=== PATIENT | male | born 1955 | race Caucasian/White ===

== ENCOUNTER 2016-12-11 20:41 | Emergency (ER) ==
[2016-12-11 20:49] LABS: ABG BASE EXCESS 0 (-2.0-2.0); ABG HCO3 24.9 (22.0-26.0); ABG PCO2 38.4 mmHg (35-45); ABG TCO2 26 (22.0-28.0)
[2016-12-11 20:50] VITALS: BP 133/88; TEMP 98.2; BMI 24.4
--- NOTE | 2016-12-11 20:50 | ED.PDOC ---
General ED Provider: Dr. KEVIN FUENTES Chief Complaint: Syncope Stated Complaint: Patient was having high Blood sugars 376, while he was coming to ER with family he passed out in the car, nurses have to bring him inside,. was awake and alert once he was inside the ER. Time Seen by Physician: 20:05 Primary Care Provider: MI LORENZO Nursing and Triage Documentation Reviewed and Agree: Yes Neurological Complaint Exam - Syncope/Near Syncope Complaint/Exam Symptoms Are: Still present Episodes Lasting: Minutes Number of Episodes: 1 Episodes Witnessed: Yes Loss of Consciousness: Yes Associated Head Trauma: No Activity at Onset: At rest Aggravating: None Alleviating: Reports: Spontaneous resolution Associated Signs and Symptoms: Reports: Weakness. Denies: Pain, Decreased oral intake, Vomiting, Diarrhea, GI blood loss, Short of air, Chest pain, Palpitations, Diaphoresis, Lightheadedness, Dizziness, AMS, Numbness, Headache, Seizure, Remote head trauma, Recent head trauma Cardiac Risk Factors: Reports: Hypertension, Diabetes GI Bleed Risk Factors: Reports: None Dysrhythmia Risk Factors: Reports: >45 years old JVD Present: No Carotid Bruit Present: No Rectal Heme Positive: No Nystagmus Present: No Gag Reflex Present: Yes Meningeal Signs Positive: No Focal Weakness: Present: None Focal Sensory Loss: Present: None Gait: Unable [id number]: Normal Findings Romberg Test Positive: No Babinski Sign: Negative Right, Negative Left Differential Diagnoses: Metabolic Reaction Quality Indicators for Cardiac Chest Pain: EKG in 10min. Review of Systems - Review Of Systems Constitutional: Reports: Weakness Eyes: Reports: No symptoms Ears, Nose, Mouth, Throat: Reports: No symptoms Respiratory: Reports: No symptoms Cardiac: Reports: No symptoms GI: Reports: No symptoms : Reports: No symptoms Musculoskeletal: Reports: No symptoms Skin: Reports: No symptoms Neurological: Reports: Headache, Weakness Endocrine: Reports: No symptoms Hematologic/Lymphatic: Reports: No symptoms All Other Systems: Reviewed and Negative Past Medical History - Past Medical History Previously Healthy: Yes Endocrine: Reports: DM 2 Cardiovascular: Reports: None Respiratory: Reports: None Hematological: Reports: None Gastrointestinal: Reports: None Genitourinary: Reports: Other (Has only one kidney ) Neuro/Psych: Reports: None Musculoskeletal: Reports: None Cancer: Reports: None Other Pertinent Past Medical History: Elbow injury, 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 - Surgical History General Surgical History: Reports: None - Family History Family History: Reports: None - Social History Smoking Status: Current every day smoker, Heavy tobacco smoker Smoking Cessation Counseling Time: > 10 min Hx Substance Use: No Alcohol Screening: None Physical Exam - Physical Exam Appearance: Ill-appearing Eyes: EOMI ENT: Ears normal, Nose normal, Oropharynx normal Respiratory: Airway patent, Breath sounds clear, Breath sounds equal, Respirations nonlabored Cardiovascular: RRR, Pulses normal, No rub, No murmur GI/: Soft, Nontender, No masses, Bowel sounds normal, No Organomegaly Musculoskeletal: Normal strength, ROM intact, No edema, No calf tenderness Skin: Warm, Dry, Normal color Neurological: Sensation intact, Motor intact, Reflexes intact, Cranial nerves intact, Alert, Oriented Psychiatric: Affect appropriate, Mood appropriate Interpretation - Radiology Interpretation Radiology Interpretation By: Radiologist Radiology Results: Negative Exam Interpreted: CT Scan Re-Evaluation - Re-Evaluation Time of Re-Evaluation: 22:00 Status: Improved Critical Care Note - Critical Care Note Total Time (mins): 30 Course - Course Hematology/Chemistry: 12/11/16 20:30 12/11/16 20:30 Orders, Labs, Meds: Lab Review 12/11/16 12/11/16 12/11/16 20:30 20:30 20:30 WBC 7.89 RBC 4.85 Hgb 14.2 Hct 41.4 L MCV 85.4 MCH 29.3 MCHC 34.3 RDW Coeff of Tor 12.4 Plt Count 191 Immature Gran % (Auto) 0.4 Neut % (Auto) 68.9 Lymph % (Auto) 21.3 [place] % (Auto) 7.4 Eos % (Auto) 1.4 Baso % (Auto) 0.6 Immature Gran # (Auto) 0.0 Neut # 5.4 Lymph # 1.7 [place] # 0.6 Eos # 0.1 Baso # 0.1 D-Dimer (Manual) Puncture Site O2 Saturation ABG pH ABG pCO2 ABG pO2 ABG HCO3 ABG Total CO2 ABG Base Excess [place] Test FiO2 % Sodium 135 L Potassium 4.2 Chloride 98 Carbon Dioxide 25 Anion Gap 16.2 BUN 22 H Creatinine 1.95 H Estimated GFR (MDRD) 35.00 BUN/Creatinine Ratio 11.28 Glucose 290 H Calcium 10.0 Total Bilirubin 0.25 AST 14 L ALT 10 L Alkaline Phosphatase 97 Total Creatine Kinase 49 Troponin I 0.0130 B-Natriuretic Peptide 23 Total Protein 7.1 Albumin 3.2 L Globulin 3.9 Albumin/Globulin Ratio 0.82 12/11/16 12/11/16 20:30 20:47 WBC RBC Hgb Hct MCV MCH MCHC RDW Coeff of Tor Plt Count Immature Gran % (Auto) Neut % (Auto) Lymph % (Auto) [place] % (Auto) Eos % (Auto) Baso % (Auto) Immature Gran # (Auto) Neut # Lymph # [place] # Eos # Baso # D-Dimer (Manual) 480.49 Puncture Site Lb O2 Saturation 95.0 ABG pH 7.420 ABG pCO2 38.4 ABG pO2 77.0 L ABG HCO3 24.9 ABG Total CO2 26 ABG Base Excess 0 [place]ane Test + FiO2 % 21.0 Sodium Potassium Chloride Carbon Dioxide Anion Gap BUN Creatinine Estimated GFR (MDRD) BUN/Creatinine Ratio Glucose Calcium Total Bilirubin AST ALT Alkaline Phosphatase Total Creatine Kinase Troponin I B-Natriuretic Peptide Total Protein Albumin Globulin Albumin/Globulin Ratio Orders Category Date Time Status ABG DRAW REQUEST Stat CARDIO 12/11/16 20:47 Completed EKG-(ED ONLY) Stat CARDIO 12/11/16 20:53 Completed ABG Stat LAB 12/11/16 20:47 Completed B-TYPE NATRIURETIC PEPTIDE Stat LAB 12/11/16 20:30 Completed CBC W/ AUTO DIFF Stat LAB 12/11/16 20:30 Completed COMPREHENSIVE METABOLIC PANEL Stat LAB 12/11/16 20:30 Completed CREATINE KINASE Stat LAB 12/11/16 20:30 Completed D-DIMER Stat LAB 12/11/16 20:30 Completed TROPONIN I Stat LAB 12/11/16 20:30 Completed URINALYSIS C & S IF INDICATED Stat LAB 12/11/16 20:45 Uncollected Clonidine HCl [Catapres] MEDS 12/11/16 21:17 Discontinued 0.1 mg PO ONCE STA CT HEAD W/O CONTRAST Stat RADS 12/11/16 20:45 Completed CXR [CHEST, 1V AP ONLY] Stat RADS 12/11/16 20:45 Taken Medications Discontinued Medications Generic Name Dose Route Start Last Admin Trade Name Freq PRN Reason Stop Dose Admin Clonidine 0.1 mg 12/11/16 21:17 12/11/16 21:29 Catapres PO 12/11/16 21:18 0.1 mg ONCE STA Administration Vital Signs: Temp Pulse Resp BP Pulse Ox 12/11/16 20:42 98.2 F 77 16 133/88 98 Departure - Departure Time of Disposition: 22:01 Disposition: AMA Discharge Problem: Syncope Instructions: Syncope (ED) Condition: Good Pt referred to PMD for follow-up: Yes Additional Instructions: advised admission in view of DM, HTN AND SYNCOPE, PATIENT REFUSED, A Allergies/Adverse Reactions: Allergies No Known Allergies Allergy (Verified 12/09/15 00:57) Home Medications: Ambulatory Orders Glipizide [Glucotrol] 5 mg PO BID 07/26/15 Linagliptin [Tradjenta] 5 mg PO BEDTIME 07/26/15 Disposition Discussed With: Patient, Family
[2016-12-11 20:53] LABS: BASOPHILS # (AUTO) 0.1 K/uL (0-0.2); BASOPHILS % (AUTO) 0.6 % (0.0-3.0); EOSINOPHILS # (AUTO) 0.1 K/ul (0.0-0.7); EOSINOPHILS % (AUTO) 1.4 % (0.0-7.0); HEMATOCRIT 41.4 % (42.0-52.0); HEMOGLOBIN 14.2 g/dl (14.0-18.0); IMMATURE GRANULOCYTE % (AUTO) 0.4 % (0.0-5.0); LYMPHOCYTES # (AUTO) 1.7 K/uL (0.60-3.4); LYMPHOCYTES % (AUTO) 21.3 (10.0-50.0); MEAN CORPUSCULAR HEMOGLOBIN 29.3 pg (27.0-31.0); MEAN CORPUSCULAR HGB CONC 34.3 (31.8-35.4); MEAN CORPUSCULAR VOLUME 85.4 fl (80.0-94.0); MONOCYTES # (AUTO) 0.6 K/uL (0.4-2.0); MONOCYTES % (AUTO) 7.4 (0-10); NEUTROPHILS # (AUTO) 5.4 K/ul (2.0-6.9); NEUTROPHILS % (AUTO) 68.9; PLATELET COUNT 191 10^3/uL (140-440); RED BLOOD COUNT 4.85 10^6/ul (4.70-6.10); WHITE BLOOD COUNT 7.89 K/ul (4.2-10.2)
[2016-12-11 21:20] LABS: ALBUMIN 3.2 g/dL (3.4-5.0); ALBUMIN/GLOBULIN RATIO 0.82; ANION GAP 16.2; BILIRUBIN,TOTAL 0.25 mg/dL (0.00-1.20); BUN/CREATININE RATIO 11.28; CREATININE 1.95 mg/dL (0.60-1.10); POTASSIUM 4.2 mmol/L (3.5-5.1); TOTAL PROTEIN 7.1 g/dL (5.8-8.1); TROPONIN I 0.013 ng/ml (0.0000-0.4000)
[2016-12-11] MEDS: CATAPRES PO STA (21:29)
--- NOTE | 2016-12-11 21:29 | CT ---
Examination: CT head without contrast 12/11/2016 Clinical information: Syncope. Comparison: None TECHNIQUE: Noncontrast helical imaging from the foramen magnum to the vertex. 5 mm axial, 3 mm sagi ttal and 3 mm coronal images are submitted for review. FINDINGS: There is no evidence of acute intracranial hemorrhage. The ventricles are normal in size and configuration. There is no mass effect, midline shift or extra-axial abnormality. There is norm al brown-white matter differentiation. Small chronic inferior right cerebellar infarct. The calvarium is intact. There is a metallic foreign body within the anterior left periorbital soft tissues. This has been present previously and noted on prior orbital film report 01/26/2008. Impression: 1. No CT evidence of acute intracranial abnormality. 2. Small chronic inferior right cerebellar infarct. 3. Left periorbital metallic foreign body.
--- NOTE | 2016-12-12 06:54 | DI ---
EXAM: Single view chest. HISTORY: Cough. COMPARISON: None. FINDINGS: A portable AP view of the chest on two images. The lung volumes are normal. There is no lobar consolidation or effusion. The heart size and pulmonary vasculature are within normal limit s. There are no suspicious pulmonary nodules. The pulmonary interstitium is normal. The aorta is tortuous and calcified. There is elevation of the distal left clavicle which has appearance of sliver lapper sameer acromioclavicular separation. A similar appearance was seen on the shoulder series dated 013. IMPRESSION: No acute pulmonary disease.
== END 2016-12-11 22:15 | disposition left against medical advice (07) ==
LOC: ED 20:41
DX: R55 Syncope and collapse (principal); R53.1 Weakness; I10 Essential (primary) hypertension; E11.9 Type 2 diabetes mellitus without complications; R51 Headache; F17.210 Nicotine dependence, cigarettes, uncomplicated
CPT/HCPCS: 36415; 80053; 82550; 82803; 83880; 84484; 85025; 85379; 93005; 93010; 99283

== ENCOUNTER 2017-07-13 03:09 | Emergency (ER) ==
[2017-07-13 03:16] VITALS: BP 170/94; TEMP 96.8; BMI 27.6
[2017-07-13] MEDS ORDERED: AUGMENTIN 500-125 MG TAB PO STA (03:23)
[2017-07-13] MEDS ORDERED: DECADRON 4 MG/ML SDV IM STA (03:23)
--- NOTE | 2017-07-13 03:28 | ED.PDOC ---
General ED Provider: Dr. KEVIN FUENTES Chief Complaint: Earache Stated Complaint: Patient had bleech fall in the right ear 2 days, its is swollen and hurting now Time Seen by Physician: 03:26 Mode of Arrival: Walk-In Information Source: Patient Primary Care Provider: MI LORENZO Nursing and Triage Documentation Reviewed and Agree: Yes Reviewed sepsis parameters & appropriate labs ordered?: No System Inflammatory Response Syndrome: Not Applicable Sepsis Protocol: For patient's 13 years and over: Temp is 96.8 and below OR 101 and greater Pulse >90 BPM Resp >20/minute Acutely Altered Mental Status Are patient's symptoms suggestive of a new infection, such as: -Pneumonia -Skin, Soft Tissue -Endocarditis -UTI -Bone, Joint Infection -Implantable Device -Acute Abdominal Infection -Wound Infection -Meningitis -Blood Stream Catheter Infection -Unknown EENT Complaint Exam - Ear Complaint/Exam Symptoms Are: Still present Timing: Constant Initial Severity: Mild Current Severity: Moderate Character: Reports: Sharp pain Aggravating: Reports: None Alleviating: Reports: None Associated Signs and Symptoms: Reports: Ear swelling. Denies: Ear trauma, Discharge, Fever, Hearing loss, Bleeding, Sore throat, Headache, URI symptoms, Foreign body sensation, Rash, Pain to external ear, Pain to external face Ear Surgical History: None Vesicles to External Pinna: No Vesicles to Tragus: No TMJ Tenderness: None Mastoid Tenderness: None Tragal Tenderness: Right External Canal: Edema, Erythema, Tenderness Differential Diagnoses: Otitis Externa Review of Systems - Review Of Systems Constitutional: Reports: No symptoms Eyes: Reports: No symptoms Ears, Nose, Mouth, Throat: Reports: Ear pain Respiratory: Reports: No symptoms Cardiac: Reports: No symptoms GI: Reports: No symptoms : Reports: No symptoms Musculoskeletal: Reports: No symptoms Skin: Reports: No symptoms Neurological: Reports: No symptoms Endocrine: Reports: No symptoms Hematologic/Lymphatic: Reports: No symptoms All Other Systems: Reviewed and Negative Past Medical History - Past Medical History Previously Healthy: Yes Endocrine: Reports: DM 2 Cardiovascular: Reports: None Respiratory: Reports: None Hematological: Reports: None Gastrointestinal: Reports: None Genitourinary: Reports: Other (Has only one kidney ) Neuro/Psych: Reports: None Musculoskeletal: Reports: None Cancer: Reports: None Other Pertinent Past Medical History: Elbow injury, 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 - Surgical History General Surgical History: Reports: None - Family History Family History: Reports: None - Social History Smoking Status: Current every day smoker, Heavy tobacco smoker Smoking Cessation Counseling Time: > 10 min Hx Substance Use: No Alcohol Screening: None - Immunizations Tetanus Shot up to Date: Yes Physical Exam - Physical Exam Appearance: Well-appearing, No pain distress, Well-nourished Eyes: HE, EOMI, Conjunctiva clear ENT: Ears normal (tragus red, swollen tender, canal swollen.), Nose normal, Oropharynx normal Respiratory: Airway patent, Breath sounds clear, Breath sounds equal, Respirations nonlabored Cardiovascular: RRR, Pulses normal, No rub, No murmur GI/: Soft, Nontender, No masses, Bowel sounds normal, No Organomegaly Musculoskeletal: Normal strength, ROM intact, No edema, No calf tenderness Skin: Warm, Dry, Normal color Neurological: Sensation intact, Motor intact, Reflexes intact, Cranial nerves intact, Alert, Oriented Psychiatric: Affect appropriate, Mood appropriate Critical Care Note - Critical Care Note Total Time (mins): 20 Course - Course Orders, Labs, Meds: Orders Category Date Time Status Amoxicillin/Potassium Clav [Augmentin 500-125 mg Tab] MEDS 07/13/17 03:23 Discontinued 1 tab PO ONCE STA Dexamethasone 4 mg/ml Inj [Decadron 4 mg/ml Sdv] MEDS 07/13/17 03:23 Discontinued 4 mg IM ONCE STA Medications Discontinued Medications Generic Name Dose Route Start Last Admin Trade Name Freq PRN Reason Stop Dose Admin Amoxicillin/Clavulanate Potassium 1 tab 07/13/17 03:23 Augmentin 500-125 Mg Tab PO 07/13/17 03:24 ONCE STA Dexamethasone Sodium Phosphate 4 mg 07/13/17 03:23 Decadron 4 Mg/Ml Sdv IM 07/13/17 03:24 ONCE STA Vital Signs: Temp Pulse Resp BP Pulse Ox 07/13/17 03:10 96.8 F L 80 24 170/94 H 98 Departure - Departure Time of Disposition: 03:30 Disposition: HOME SELF-CARE Discharge Problem: Otitis externa Qualifiers: Otitis externa type: other infective Chronicity: acute Laterality: right Qualified Code(s): H60.391 - Other infective otitis externa, right ear Instructions: Otitis Externa (ED) Condition: Stable Pt referred to PMD for follow-up: Yes IPMP verified?: No Additional Instructions: keep checking Blood sugars if more than 250 call MD office Increase hydration Take medication with food f/u with PMD Prescriptions: Ciprofloxacin HCl [Cipro] 250 mg PO Q12HR #14 tablet Ciprofloxacin/Dexamethasone [Ciprodex Otic Suspension] 2 drop OT TID #1 btl Prednisone 10 mg PO BIDWM #14 tablet Allergies/Adverse Reactions: Allergies No Known Allergies Allergy (Verified 07/13/17 03:14) Home Medications: Ambulatory Orders Glipizide [Glucotrol] 5 mg PO BID 07/26/15 Linagliptin [Tradjenta] 5 mg PO BEDTIME 07/26/15 Ciprofloxacin HCl [Cipro] 250 mg PO Q12HR #14 tablet 07/13/17 Ciprofloxacin/Dexamethasone [Ciprodex Otic Suspension] 2 drop OT TID #1 btl Prednisone 10 mg PO BIDWM #14 tablet 07/13/17
== END 2017-07-13 03:54 | disposition home or self-care (01) ==
LOC: ED 03:09
DX: H60.391 Other infective otitis externa, right ear (principal); F17.210 Nicotine dependence, cigarettes, uncomplicated; E11.9 Type 2 diabetes mellitus without complications
CPT/HCPCS: 96372; 99282

== ENCOUNTER 2018-05-12 02:04 | Emergency (ER) ==
[2018-05-12 02:06] VITALS: BP 144/77; TEMP 97.6
[2018-05-12] MEDS: TORADOL IM STA ×2 (02:27→02:28)
--- NOTE | 2018-05-12 02:32 | ED.PDOC ---
General ED Provider: Dr. RUPAL VAUGHN Chief Complaint: Extremity Pain/Injury Stated Complaint: Patient presents to the ER with Right knee pain that started suddely prior to arrival. Denies any trauma. He is diabetic and takes his medications as prescribed. 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 Time Seen by Physician: 02:20 Mode of Arrival: Walk-In Information Source: Patient Exam Limitations: No limitations Primary Care Provider: MI LORENZO Nursing and Triage Documentation Reviewed and Agree: Yes Does patient meet sepsis criteria?: No If yes, has appropriate treatment been initiated?: No System Inflammatory Response Syndrome: Not Applicable Sepsis Protocol: For patient's 13 years and over: Temp is 96.8 and below OR 101 and greater Pulse >90 BPM Resp >20/minute Acutely Altered Mental Status Are patient's symptoms suggestive of a new infection, such as: -Pneumonia -Skin, Soft Tissue -Endocarditis -UTI -Bone, Joint Infection -Implantable Device -Acute Abdominal Infection -Wound Infection -Meningitis -Blood Stream Catheter Infection -Unknown Review of Systems - Review Of Systems Constitutional: Reports: No symptoms Eyes: Reports: No symptoms Ears, Nose, Mouth, Throat: Reports: No symptoms Respiratory: Reports: No symptoms Cardiac: Reports: No symptoms GI: Reports: No symptoms : Reports: No symptoms Musculoskeletal: Reports: Joint pain Skin: Reports: No symptoms Neurological: Reports: Anxiety Endocrine: Reports: No symptoms Hematologic/Lymphatic: Reports: No symptoms All Other Systems: Reviewed and Negative Past Medical History - Past Medical History Previously Healthy: Yes Endocrine: Reports: DM 2 Cardiovascular: Reports: None Respiratory: Reports: None Hematological: Reports: None Gastrointestinal: Reports: None Genitourinary: Reports: Other (Has only one kidney ) Neuro/Psych: Reports: None Musculoskeletal: Reports: None Cancer: Reports: None Other Pertinent Past Medical History: Elbow injury, 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 - Surgical History General Surgical History: Reports: None - Family History Family History: Reports: None - Social History Smoking Status: Current every day smoker, Heavy tobacco smoker Hx Substance Use: No Alcohol Screening: Occasionally - Immunizations Tetanus Shot up to Date: Yes Physical Exam - Physical Exam Appearance: Well-nourished Pain Distress: Severe Neck: Supple Respiratory: Airway patent, Breath sounds clear, Breath sounds equal, Respirations nonlabored Cardiovascular: RRR, Pulses normal, No rub, No murmur GI/: Soft Musculoskeletal: ROM intact (tenderness to palpation on the posterior aspece of the right knee. ) Skin: Warm, Dry Neurological: Sensation intact, Motor intact, Cranial nerves intact, Alert, Oriented Psychiatric: Anxious Interpretation - Radiology Interpretation Radiology Interpretation By: Radiologist Radiology Results: Negative Exam Interpreted: Other (Right knee) Critical Care Note - Critical Care Note Total Time (mins): 0 Course - Course Hematology/Chemistry: 05/12/18 02:40 05/12/18 02:40 Orders, Labs, Meds: Lab Review 05/12/18 05/12/18 05/12/18 02:40 02:40 03:00 WBC 7.53 RBC 4.70 Hgb 13.4 L Hct 39.8 L MCV 84.7 MCH 28.5 MCHC 33.7 RDW Coeff of Tor 12.2 Plt Count 195 Immature Gran % (Auto) 0.4 Neut % (Auto) 74.1 Lymph % (Auto) 15.9 [place] % (Auto) 7.2 Eos % (Auto) 2.0 Baso % (Auto) 0.4 Immature Gran # (Auto) 0.0 Neut # (Auto) 5.6 Lymph # (Auto) 1.2 [place] # (Auto) 0.5 Eos # (Auto) 0.2 Baso # (Auto) 0.0 D-Dimer (Manual) 1234.68 Sodium 135.3 Potassium 4.46 Chloride 101.7 Carbon Dioxide 22.3 Anion Gap 15.76 BUN 27.0 H Creatinine 2.09 H Estimated GFR (MDRD) 32.00 BUN/Creatinine Ratio 12.91 Glucose 343.8 H Uric Acid 7.34 Calcium 9.14 Total Bilirubin 0.40 AST 22.9 ALT 12.7 Alkaline Phosphatase 90.9 Total Protein 7.50 Albumin 3.95 Globulin 3.55 Albumin/Globulin Ratio 1.11 Orders Category Date Time Status CBC W/ AUTO DIFF Stat LAB 05/12/18 02:40 Completed COMPREHENSIVE METABOLIC PANEL Stat LAB 05/12/18 02:40 Completed D-DIMER Stat LAB 05/12/18 03:00 Completed URIC ACID Stat LAB 05/12/18 02:40 Completed Ketorolac Tromethamine [Toradol] MEDS 05/12/18 02:22 Discontinued 60 mg IM ONCE STA KNEE, RIGHT 4 VIEWS Stat RADS 05/12/18 02:34 Taken Medications Discontinued Medications Generic Name Dose Route Start Last Admin Trade Name Freq PRN Reason Stop Dose Admin Ketorolac Tromethamine 60 mg 05/12/18 02:22 05/12/18 02:28 Toradol IM 05/12/18 02:23 Not Given ONCE STA Vital Signs: Temp Pulse Resp BP Pulse Ox 05/12/18 02:04 97.6 F 96 H 18 144/77 H 96 Departure - Departure Time of Disposition: 02:55 Disposition: AMA Discharge Problem: Popliteal pain Instructions: [place] Cyst (ED) Condition: Fair Pt referred to PMD for follow-up: Yes IPMP verified?: No Additional Instructions: Take medications as prescribed Follow up with PCP in 3 days Prescriptions: Tramadol HCl [Ultram] 50 mg PO Q6H PRN #14 tablet PRN Reason: Severe Pain Allergies/Adverse Reactions: Allergies No Known Allergies Allergy (Verified 05/12/18 02:07) Home Medications: Ambulatory Orders Glipizide [Glucotrol] 5 mg PO BID 07/26/15 Linagliptin [Tradjenta] 5 mg PO BEDTIME 07/26/15 Tramadol HCl [Ultram] 50 mg PO Q6H PRN #14 tablet 05/12/18 Disposition Discussed With: Patient
--- NOTE | 2018-05-12 07:34 | DI ---
EXAM: Right knee, four views, 05/12/2018 HISTORY: Knee pain COMPARISON: None. FINDINGS / IMPRESSION: The visualized osseous structures appear intact. Anatomic alignment appears within normal limits. There is no evidence of fracture or dislocation. Chronic osteoarthritic degenerative change. Extensor mechanism remains intact. No joint effusion. No acute osseous abnormality.
== END 2018-05-12 02:53 | disposition left against medical advice (07) ==
LOC: ED 02:04
DX: M25.561 Pain in right knee (principal); E11.9 Type 2 diabetes mellitus without complications; F17.210 Nicotine dependence, cigarettes, uncomplicated
CPT/HCPCS: 36415; 80053; 84550; 85025; 85379; 99283